=== PATIENT | male | born 1995 | race African-American/Black ===

== ENCOUNTER 2023-12-27 21:27 | Emergency (ER) | payer OTHER ==
[~2023-12-27] VITALS: Ht 172.7 cm; Wt 71.8 kg
[2023-12-27] MEDS: IBUPROFEN 800 MG TAB PO ONE (22:30)
[2023-12-27 23:38] VITALS: BP 111/65; TEMP 97.8; O2SAT 100
== END 2023-12-27 23:39 | disposition home or self-care (01) ==
LOC: M ED 21:27
DX: M25.562 Pain in left knee (principal)